=== PATIENT | female | born 1985 | race Hispanic/Latino ===

== ENCOUNTER 2020-05-17 21:55 | Emergency (ER) | payer SELFPAY ==
--- OUTSIDE RECORDS SUMMARY | 2020-05-17 21:57 | XMS REPORT | Continuity of Care Document ---
:[address] [facility] t Address [address] [place] [address] Care Team Providers Name Role Phone Jomar Melton Attending Clinician Problems This patient has no known problems. Allergies, Adverse Reactions, Alerts This patient has no known allergies or adverse reactions. Medications This patient has no known medications. Procedures This patient has no known procedures. Encounters Start End Encounter Admission Attending Care Care Encounter Source Date/Time Date/Time Type Type Clinicians Facility Department ID 2020-03-09 2020-03-09 Office NANCY Adams [id number] 09:04:24 10:05:10 Visit Marco Hadley [employer] [id number] [facility] [id number] MATERNAL [id number] & CHILD [address] [place] [address] Results This patient has no known results.
--- OUTSIDE RECORDS SUMMARY | 2020-05-17 21:57 | XMS REPORT | Summary of Care ---
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 Well woman exam (no gynecological exam); [address] [place] [address] Screen fo r STD (sexually transmitted disease); [address] [place] Need for prophylactic vaccination and in oculation against influenza; [place], [place] [address] Class 2 obesity with body mass index (BM I) of 36.0 to 36.9 in adult, unspecified obesity type, unspecified whether serious comorbidity present; [id number] BMI 36.0-36.9,adult [phone] Allergies No Known Allergiesdocumented as of this encounter (statuses as of 03/09/2020) Medications No known medicationsdocumented as of this encounter (statuses as of 03/09/2020) Active Problems Patient Care Coordination Note GDM with LGA fetus- repeat CS at 38-39 w eeks gestation Problem Noted Date Need for prophylactic vaccination and inoculation agai nst influenza 03/09/2020 Encounter for surveillance of other contraceptive 01/2018 Nexplanon removal 06/10/2014 BMI 36.0-36.9,adult 06/10/2014 Overview: 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 Screen for STD (sexually transmitted disease) 06/10/19 15 Overview: 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 GDM (gestational diabetes mellitus) 09/25/2013 Overview: 2,000 calorie diet 02/08- glyburide 5 mg BID Class 2 obesity with body mass index (BMI) of 36.0 to 36.9 in adult, 07/24/2012 unspecified obesity type, unspecified whether serious comorbidity present documented as of this encounter (statuses as of 03/09/2020) Resolved Problems Problem Noted Date Resolved Date Routine follow-up 05/20/2014 06/10/2014 Anemia of mother in , condition 05/20/19 15 06/10/2014 04/22/2014 05/20/2014 GBS (group b Streptococcus) UTI complicating , 02/1905/20/2014 unspecified trimester Overview: 03/01 GBS (+) Glucose tolerance test abnormal 09/21/2013 09/26/19 14 Overview: 1hr- 186. Needs 3hr---failed UTI (urinary tract infection) 09/21/2013 05/20/2014 Overview: KIMBERLY- 09/2013, 10/2013, 2013- E coli. 12/07/2013- neg KIMEBRLY 03/08 E colio and GBS- place on suppressive therapy High-risk 09/18/2013 05/20/2014 Overview: Dating usg cancelled per scheduling nurse due to Title V. Patient may be given title V ultrasound but it must be before 2nd visit. 2nd visit scheduled for tomorrow so box nailer can not accomodates in short time. 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 Morbid obesity 07/21/2013 09/18/2013 High-risk 07/24/2012 07/21/2013 Gestational diabetes mellitus, class A2 07/24/2012 07/21/2013 Previous delivery, antepartum condition or 07/25/19 13 07/21/2013 complication Hx of preeclampsia, prior , currently 11/201207/21/2013 documented as of this encounter (statuses as of 03/09/2020) Immunizations Name Administration Dates Next Due Influenza Virus Vaccine (3+ yrs) 03/01/2014 Influenza Virus Vaccine Quad .5 mL IM 6+ MO 03/09/2020 Rubella 11/30/2011 TDAP 02/15/2014, 07/16/2012 documented as of this encounter Social History Tobacco Use Types Packs/Day Years Used Date Former Smoker Quit: 09/19/19 12 Smokeless Tobacco: Never Used Alcohol Use Drinks/Week oz/Week Comments Yes social Sex Assigned at Date Recorded Not on file COVID-19 Exposure Response Date Recorded In the last month, have you been in contact with No / Unsure 03/09/2020 9:19 AM CDT someone who was confirmed or suspected to have Coronavirus / COVID-19? documented as of this encounter Last Filed Vital Signs Vital Sign Reading Time Taken Comments Blood Pressure 122/82 03/09/2020 9:19 AM CDT Pulse 67 03/09/2020 9:19 AM CDT Temperature 36.7 C (98.1 F) 03/09/2020 9:19 AM CDT Respiratory Rate 16 03/09/2020 9:19 AM CDT Oxygen Saturation - - Inhaled Oxygen Concentration - - Weight 99.2 kg (218 lb 12.8 oz) 03/09/2020 9:19 AM CDT Height 165.1 cm (5' 5") 03/09/2020 9:19 AM CDT Body Mass Index 36.41 03/09/2020 9:19 AM CDT documented in this encounter Patient Instructions Patient InstructionsSridevi Powers RN - 03/09/2020 9:00 AM CDT Patient Education 5 Steps for Eating Healthier Changing the way you eat can improve your health. It can lower your cholesterol and blood pressure, and help you stay at a healthy weight. Your diet doesnt have to be bland and boring to be healthy.Just watch your calories and follow these steps: Step 1. Eat fewer unhealthy fats Choose more fish and lean meats instead of fatty cuts of meat. Skip butter and lard, and use less margarine. Pass on foods that have palm, coconut, or hydrogenated oils. Eat fewer high-fat dairy foods like cheese, ice cream, and whole milk. Get a heart-healthy cookbook and try some low-fat recipes. Step 2.Go light on salt Keep the saltshaker off the table. Limit high-salt ingredients, such as soy sauce, bouillon, and garlic salt. Instead of adding salt when cooking, season your food with herbs and flavorings. Try lemon, garlic, and onion, or salt-free herb seasonings. Limit convenience foods, such as boxed or canned foods and restaurant food. Read food labels and choose lower-sodium options. Step 3. Limit sugar Pause before you add sugars to pancakes, cereal, coffee, or tea. This includes white and brown table sugar, syrup, honey, and molasses. Cut your usual amount by half. Use non-sugar sweeteners. Stevia, aspartame, and sucralose can satisfy a sweet tooth without adding calories. Swap out sugar-filled soda and other drinks. Buy sugar-free or low-calorie beverages. Remember water is always the best choice. Read labels and choose foods with less added sugar. Keep in mind that dairy foods and foods with fruit will have some natural sugar. Cut the sugar in recipes by 1/3 to 1/2. Boost the flavor with extracts like almond, vanilla, or orange. Or add spices such as cinnamon or nutmeg. Step 4. Eatmore fiber Eat fresh fruits and vegetables every day. Boost your diet with whole grains. Go for oats, whole-grain rice, and bran. Add beans and lentils to your meals. Drink more water to match your fiber increase to help prevent constipation. Step 5. Pay attention to serving sizes Remember that a serving size is a standard measurement. It will let you track the amount of fat, calories, and other nutrients in the food you eat. Read the Nutrition Facts label on packaged foods to learn their serving sizes. Use serving sizes to assess how much food you put on your plate. Pay attention to your portions. How many servings are you eating? Keep in mind that your needs may change if youre more active or less active, or if you have other factors that change your calorie needs. Use your hand to help you measure serving sizes. For example: ? 1 teaspoon: This is about the size of the first joint of your thumb. ? 1 tablespoon: This is about the size of the first 2 joints of your thumb. ? 1 ounce: This is about what you can fit in your cupped hand. ? 2 to 3 ounces: This is about size of the palm of your hand. ? cup: This is also about what you can fit in your cupped hand. ? 1 cup: This is about the size of your fist. [employer] last reviewed this educational content on 11/18/201919997731-2720 [employer]. All rights reserved. This information is not intended as a substitute for professional medical care. Always follow your healthcare professional's instructions. Patient Education Breast Health: Breast Self-Awareness What is breast self-awareness? Breast self-awareness is knowing how your breasts normally look and feel. Your breasts change as yougo through different stages of your life. So its important to learn what is normal for your breasts. Knowing about your breasts helps you spot any changes in them right away. Tell your healthcare provider about any changes. Why is breast self-awareness important? Many experts now say that women should focus on breast self-awareness instead of doing a breast self-examination (BSE). These experts include the [place] [employer] and the [place] [employer]. Some experts even advise not teaching women to do a BSE. Thats because research hasnt shown a clear benefit to doing BSEs. Breast self-awareness is different than a BSE. It isnt about following a certain method and schedule. Its about knowing what's normal for your breasts. That way you can spot even small changes right away. If you see any changes, tell your healthcare provider. Changes to look for Call your healthcare provider if you find any changes in your breasts that worry you. These changes may be: A lump Nipple discharge other than breast milk, especially if it's bloody Swelling A change in size or shape Skin changes, such as redness, thickening, or dimpling of the skin Swollen lymph nodes in the armpit Nipple problems, such as pain or redness If you find a lump Call your provider if you find lumpiness in one breast. Also call if you feel something different inthe tissue or feel a definite lump. Sometimes lumpiness may be due to menstrual changes. But there may be reason for concern. Your provider may want to see you right away if you have: Nipple discharge that is bloody Skin changes on your breast, such as dimpling or puckering Its okay to be upset if you find a lump. Be sure to call your provider right away. Remember that most breast lumps are benign. This means they are not cancer. [employer] last reviewed this educational content on 09/18/201919997074-0323 [employer]. All rights reserved. This information is not intended as a substitute for professional medical care. Always follow your healthcare professional's instructions. Patient Education Clinical Breast Exam Many health organizations recommend a yearly clinical breast exam. This exam may be done by a fence rider, family healthcare provider, nurse practitioner, nurse edger automatic, or specially trained nurse. Yearly breast exams help tomake surethat breast conditions are found early. Your healthcare providers role A healthcare professional knows the tests and follow-up care needed if a problem is found. Your clinical exam is also a great time to ask questions about breast self-exams. You can find out if yourechecking your breasts in the best way. Or you may want to ask how , breast implants, or breast reduction surgery affect the way you should check your breasts. Diagnostic tests If a clinical exam reveals a breast change, you may have other tests to find out more. These tests may include: Mammography. A low-dose X-ray of your breast tissue. Ultrasound. An imaging test that uses sound waves to create images of your breast. Biopsy. A small amount of breast tissue is removed by needle or by a cut (incision). The tissue is then checked under a microscope. Guidelines for having clinical breast exams The [place] [employer] recommends that starting at age 29, you should have a clinical breast exam every 1 to 3 years. After age 40, have a clinical breast exam each year. If youre at higher risk for breast cancer, you may need exams more often. Risk factors for breast cancer may include: Being over 50 or postmenopausal Having a family history of breast cancer Having the BRCA1 or BRCA2 gene mutation or certain other gene mutations Having more menstrual periods due to starting menstruation early(before age 12) or having a late menopause (after age 55) Having no pregnancies Having a first after age 30 Being obese Having a history of radiation treatment to your chest area Exposure to CRISTAL during your mother's Not being active Drinking too much alcohol Having dense breast tissue Taking hormone therapy after menopause Other health organizations have different recommendations. Talk with your healthcare provider about what is best for you. [employer] renetta reviewed this educational content on 08/19/201919992639-2242 [employer]. All rights reserved. This information is not intended as a substitute for professional medical care. Always follow your healthcare professional's instructions. Patient Education Control Methods control methods are used to help prevent .There are many different methods to choose from. Talk with your healthcare provider about which method is right for you.Be sure to ask your provider how well each one works. Also ask about the benefits, risks, and side effects of each method. Hormones Some control methods work by releasing hormones such as progestin and estrogen. These methods include hormone implants, hormone shots, the vaginal ring, the patch,and control pills. They all work by stopping the release of the egg from the ovary (ovulation). All of these methods work well and can be stopped at any time. The implant is a small device that needs to be placed in the upper arm by a trained healthcare provider. It works for up to3 years. Hormone injections must be repeated every 3 months. The vaginal ring must be replaced monthly. It can be removed during the fourth week of each cycle. The patch must be replaced weekly. It's not worn during the fourth week of each cycle. control pills must be taken every day. Intrauterine device (IUD) An IUD is a small, T-shaped device. It must be placed in the uterus by a trained healthcare provider.There are different types of IUDs available. They work by causing changes in the uterus that make it harder for sperm to reach the egg. Depending on the type of IUD you have, it may work for several years or longer. The IUD is a reversible control method. This means it can be removed at any time. Condom A condom is a sheath that forms a thin barrier between the penis and the vagina.It helps prevent by keeping sperm from entering the vagina. When latex condoms are used, they have the added benefit of protecting against most STIs (sexually transmitted infections).Condoms are used each time there is sexual intercourse and should be discarded after each use. Ask your healthcare provider about the different types of condoms available. These include both the male condom and female condom. Spermicide Spermicides come as foams, jellies, creams, suppositories, andtablets.They help prevent by killing sperm. When used alone they are not that reliable. They work best when combined with other control methods such as diaphragms and cervical caps. Sponge, diaphragm, and cervical cap All of these methods help prevent by covering the opening of the uterus (cervix). This prevents sperm from passing through. The sponge contains spermicide. It can be bought over the counter. The sponge must be left in place for at least 6 hours after the last time you have sex.However, it should not stay in place for morethan 24 hours. Discard after use. Thediaphragmand cervical cap must be fitted and prescribed by your healthcare provider. Both areused with spermicide.The diaphragm must be left in place for at least 6 hours after sex. However, it should not stay in place for more than 24 hours.It can be washed and reused. The cervical cap must be left in place for at least 6 hours after sex. However, it should not stay in place for more than 48 hours. It can be washed and reused. Withdrawal method This is when the man pulls his penis out of the vagina just before ejaculation (coming). This lowers the amount of sperm entering the vagina. Be aware that fluids released just before ejaculationoften still contain some sperm, so this method is not as reliable as certain other methods. Rhythm method This method is also call natural family planning or fertility awareness. It requires that you know when in your menstrual cycle you are likely to become . Then you not have sex during those days. This requires careful planning and good discipline. Your healthcare provider can explain more about how this works. Tubal ligation and vasectomy These are surgical methods to prevent . Tubal ligation is an option for women. The fallopian tubes are blocked or cut (ligated). This keeps the egg from passing into the uterus or sperm from reaching the egg. Vasectomy is an option for men. The tubes that normally carry sperm to the penis areeither closed or blocked. Both tubal ligation and vasectomy are permanent control methods. This means reversal is either not possible or unlikely to work.They are good choices for women and menwho know that they don't want to have children in the future. [employer] last reviewed this educational content on 11/18/2019 [employer]. All rights reserved. This information is not intended as a substitute for professional medical care. Always follow your healthcare professional's instructions. Patient Education Understanding HPV (Human Papillomavirus) HPV (human papillomavirus) is a virus that causes warts. It can be hard to detect, so many people never even know they have it. Some types (strains) of HPV may cause warts on the hands, legs, or other parts of the body. These can spread from person to person. Other strains of HPV cause wartsin the genital area. A few of these strains can cause certain cancers: Cancers of the cervix, vagina, and vulva in women Cancers of the penis in men Cancers of the anus and back of the throat, including the base of the tongue and tonsils in both women and men . Treating genital forms of HPV now can help prevent serious health problems in the future. How was I infected? HPV is passed from person to person through contact with infected skin. Everyone with HPV has a different experience. Some people notice genital warts (condyloma) within a few months of exposure. In other people, warts take years to appear or may never appear. This makes it almost impossible to know when or by whom you were infected. How warts form HPV lives inside skin and mucous membrane (including in the mouth and vagina). The virus can make skin cells reproduce more often than they should. These extra skin cells build up into warts. 1. HPV invades the skin. 2. DNA from the virus enters skin cells. 3. HPV causes infected skin cells to multiply and form warts. 4. The virus sheds, allowing it to be passed to others. [employer] last reviewed this educational content on 10/18/2018 [employer]. [address] [place] [address]. All rights reserved. This information is not intended as a substitute for professional medical care. Always follow your healthcare professional's instructions. Patient Education Prevention Guidelines,Women Ages 18 to 39 Screening tests and vaccines are an important part of managing your health. A screening test is doneto find possible disorders or diseases in people who don't have any symptoms. The goal is to find a disease early so lifestyle changes can be made and you can be watched more closely to reduce the riskof disease, or to detect it early enough to treat it most effectively. Screening tests are not considered diagnostic, but are used to determine if more testing is needed. Health counseling is essential, too. Below are guidelines for these, for women ages 18 to 39. Talk with your healthcare provider tomake sure youre up-to-date on what you need. Screening Who needs it How often Alcohol misuse All women in this age group At routine exams Blood pressure All women in this age group Yearly checkup if your blood pressure is normal Normal blood pressure is less than 120/80 mm Hg If your blood pressure reading is higher than normal, follow the advice of your healthcare provider Breast cancer All women in this age group should talk with their healthcare providers about the needfor clinical breast exams (CBE)1 Clinical breast exam every 3 years1 Cervical cancer Women ages 21 and older Women between ages 21 and 29 should have a Pap test every 3years; women between ages 30 and 65 are advised to have a Pap test plus an HPV test every 5 years Chlamydia Sexually active women ages 24 and younger, and women at increased risk for infection Every 3 years if you're at risk or have symptoms Depression All women in this age group At routine exams Diabetes mellitus, type 2 Adults with no symptoms who are overweight or obese and have 1 or more other risk factors for diabetes At least every 3 years. Also, testing for diabetes during after the 24th week. Gonorrhea Sexually active women at increased risk for infection At routine exams Hepatitis C Anyone at increased risk At routine exams HIV All women At routine exams3 Obesity All women in this age group At routine exams Syphilis Women at increased risk for infection should talk with their healthcare provider At routine exams Tuberculosis Women at increased risk for infection should talk with their healthcare provider Ask your healthcare provider Vision All women in this age group At least 1 complete exam in your 20s, and 2 in your 30s Vaccine Who needs it How often Chickenpox (varicella) All women in this age group who have no record of this infection or vaccine2 doses; the second dose should be given 4 to 8 weeks after the first dose Hepatitis A Women at increased risk for infection should talk with their healthcare provider 2 doses given at least 6 months apart Hepatitis B Women at increased risk for infection should talk with their healthcare provider 3 doses over 6 months; second dose should be given 1 month after the first dose; the third dose should be given at least 2 months after the second dose and at least 4 months after the first dose Haemophilus influenzae Type B (HIB) Women at increased risk for infection should talk with their healthcare provider 1 to 3 doses Human papillomavirus (HPV) All women in this age group up to age 26 3 doses; the second dose should be given 1 to 2 months after the first dose and the third dose given 6 months after the first dose Influenza (flu) All women in this age group Once a year Measles, mumps, rubella (MMR) All women in this age group who have no record of these infections orvaccines 1 or 2 doses Meningococcal Women at increased risk for infection should talk with their healthcare provider 1 ormore doses Pneumococcal conjugate vaccine (PCV13)and pneumococcal polysaccharidevaccine(PPSV23) Women atincreased risk for infection should talk with their healthcare provider PCV13: 1 dose ages 19 to 65(protects against 13 types of pneumococcal bacteria) PPSV23: 1 to2 doses through age 64, or 1 dose at 65 or older (protects against 23 types of pneumococcal bacteria) Tetanus/diphtheria/pertussis (Td/Tdap) booster All women in this age group Td every 10 years, or a one-time dose of Tdap instead of a Td booster after age 18, then Td every 10 years Counseling Who needs it How often BRCA gene mutation testing for breast and ovarian cancer susceptibility Women with increased risk for having gene mutation When your risk is known Breast cancer and chemoprevention Women at high risk for breast cancer When your risk is known Diet and exercise Women who are overweight or obese When diagnosed, and then at routine exams Domestic violence Women at the age in which they are able to have children At routine exams Sexually transmitted infection prevention Women who are sexually active At routine exams Skin cancer Prevention of skin cancer in fair-skinned adults At routine exams Use of tobacco and the health effects it can cause All women in this age group Every visit 1 According to the ACS, women ages 20 to 39 years should have a clinical breast exam (CBE) as part of their routine health exam every 3 years. Breast self-exams are an option for women starting in their 20s.But the U.S. Preventive Services Task Force (USPSTF) does not recommend CBE. 2 Those who are 18 years old and not up-to-date on their childhood vaccines should get all appropriate catch-up vaccines recommended by the CDC. 3 The USPSTF recommends that all people ages 15 to 65 years be screened for HIV and those younger orolder people at increased risk. The CDC recommends that everyone between the ages of 13 and 64 get tested for HIV at least once as part of routine health care. [employer] last reviewed this educational content on 02/17/201719995185-0190 [employer]. All rights reserved. This information is not intended as a substitute for professional medical care. Always follow your healthcare professional's instructions. Patient Education What Are Sexually Transmitted Infections (STIs)? A sexually transmitted infection (STI) is an infection that is spread during sex. An STI can also becalled STD for sexually transmitted disease. You can become infected with an STI if you have sex with someone who has an STI. Any sex that involves the penis, vagina, anus, or mouth can spread these infections. Some STIs also spread through body fluids such as semen, vaginal fluid, or blood. Others spread through contact with infected skin. The most common STIs are chlamydia, genital warts , genital herpes, syphilis, HIV, gonorrhea, and trichomoniasis. Who is at risk? It doesnt matter if youre straight or tyler, male or female, young or old. Any person who has sex can get an STI. Your risk increases if: You have more than one partner. The more partners you have, the greater your risk. Your partner has other partners. If your partner is exposed to an STI, you could be, too. You or your partner have had sex with other people in the past. Either of you might be carrying an STI from an earlier partner. You have an STI. The STI may cause sores or other health problems that increase your risk for newinfections. Your risk will stay high unless you are treated for your current STI and change the behaviors that put you at risk. Prevent future problems Left untreated, certain STIs can lead to cancer or, rarely, . Some can harm unborn babies whosemothers are infected. Others can cause you to not be able to have children (sterility) or can affectchanges in behavior or your ability to think. You can prevent these problems with safer sex, regularcheckups, and early treatment. Always use a latex condom when you have sex. Get tested if youre at risk. And get treated early if you have an STI. Using a latex condom every time you have sex can reduce your risk of STIs. Getting checked The only sure way to know if you have an STI is to get checked by a healthcare provider. If you notice a change in how your body looks or feels, have it checked out. But keep in mind, STIs dont always show symptoms. So if youre at risk for STIs, get checked regularly. If you find you have an STI, have your partner get treatment. If not, his or her health is at risk. And left untreated, your partner could pass the STI back to you, or on to others. Common symptoms Be alert to any changes in your body and your partners body. Symptoms may appear in or near the vagina, penis, rectum, mouth, or throat. They may include: Unusual discharge Lumps, bumps, or rashes Sores that may be painful, itchy, or painless Itchy skin Burning with urination Pain in the pelvis, belly (abdomen), or rectum Bleeding from the rectum Even if you dont have symptoms You may have an STI even if you dont have symptoms. If you think you are at risk, get checked. Goto a clinic or to your healthcare provider. If your partner has an STI, you need to be tested even if you feel fine. Vaccines to prevent disease Vaccines are available to prevent hepatitis A and hepatitis B. These are 2 kinds of STIs. There is also a vaccine to prevent human papillomavirus (HPV). This is a virus that can be passed from person to person through sexual contact. Ask your healthcare provider whether any of these vaccines is right for you. [employer] last reviewed this educational content on 04/19/201819993585-3893 [employer]. All rights reserved. This information is not intended as a substitute for professional medical care. Always follow your healthcare professional's instructions. Patient Education What Are Sexually Transmitted Infections (STIs)? A sexually transmitted infection (STI) is an infection that is spread during sex. An STI can also becalled STD for sexually transmitted disease. You can become infected with an STI if you have sex with someone who has an STI. Any sex that involves the penis, vagina, anus, or mouth can spread these infections. Some STIs also spread through body fluids such as semen, vaginal fluid, or blood. Others spread through contact with infected skin. The most common STIs are chlamydia, genital warts , genital herpes, syphilis, HIV, gonorrhea, and trichomoniasis. Who is at risk? It doesnt matter if youre straight or tyler, male or female, young or old. Any person who has sex can get an STI. Your risk increases if: You have more than one partner. The more partners you have, the greater your risk. Your partner has other partners. If your partner is exposed to an STI, you could be, too. You or your partner have had sex with other people in the past. Either of you might be carrying an STI from an earlier partner. You have an STI. The STI may cause sores or other health problems that increase your risk for newinfections. Your risk will stay high unless you are treated for your current STI and change the behaviors that put you at risk. Prevent future problems Left untreated, certain STIs can lead to cancer or, rarely, . Some can harm unborn babies whosemothers are infected. Others can cause you to not be able to have children (sterility) or can affectchanges in behavior or your ability to think. You can prevent these problems with safer sex, regularcheckups, and early treatment. Always use a latex condom when you have sex. Get tested if youre at risk. And get treated early if you have an STI. Using a latex condom every time you have sex can reduce your risk of STIs. Getting checked The only sure way to know if you have an STI is to get checked by a healthcare provider. If you notice a change in how your body looks or feels, have it checked out. But keep in mind, STIs dont always show symptoms. So if youre at risk for STIs, get checked regularly. If you find you have an STI, have your partner get treatment. If not, his or her health is at risk. And left untreated, your partner could pass the STI back to you, or on to others. Common symptoms Be alert to any changes in your body and your partners body. Symptoms may appear in or near the vagina, penis, rectum, mouth, or throat. They may include: Unusual discharge Lumps, bumps, or rashes Sores that may be painful, itchy, or painless Itchy skin Burning with urination Pain in the pelvis, belly (abdomen), or rectum Bleeding from the rectum Even if you dont have symptoms You may have an STI even if you dont have symptoms. If you think you are at risk, get checked. Goto a clinic or to your healthcare provider. If your partner has an STI, you need to be tested even if you feel fine. Vaccines to prevent disease Vaccines are available to prevent hepatitis A and hepatitis B. These are 2 kinds of STIs. There is also a vaccine to prevent human papillomavirus (HPV). This is a virus that can be passed from person to person through sexual contact. Ask your healthcare provider whether any of these vaccines is right for you. [employer] last reviewed this educational content on 04/19/201819994387-1420 [employer]. All rights reserved. This information is not intended as a substitute for professional medical care. Always follow your healthcare professional's instructions. Patient Education Understanding HIV and AIDS It's important to know how HIV can get into your body and what happens once its there. Then youll be better prepared to protect yourself or others against this virus. A person with HIV can look and feel perfectly healthy. But that person can give HIV to others as soon as he or she is infected with the virus. Having unsafe or unprotected sex or sharing needles puts you at risk for HIV. Talk with your healthcare provider about ways to protect yourself or a loved one from getting HIV. How HIV infection progresses After HIV enters the body, it attacks the immune system in the stages below. A person with HIV can infect others once the virus gets into the blood. HIV with no symptoms. A person with HIV may have no symptoms for years. The only sign of infection may be a positive blood test for HIV 2 weeks to 3 months or later after HIV enters the body. HIV with symptoms. Some people develop an illness similar to mono (mononucleosis) 2 to 4 weeks after the virus enters the body. This is called acute retroviral syndrome. Symptoms may include swollen lymph glands, chills, fever, night sweats, weakness, weight loss, skin rashes, mouth ulcers, or sore t hroat. Symptoms may be mild or the person can feel quite sick. Even without treatment the symptoms almost always go away in a few days or up to 2 to 3 weeks. Then the person has no symptoms, often for years. But over time the immune system starts to get weaker and symptoms start appearing. People at this stage may have a yeast infection in the mouth (oral thrush), shingles, skin problems, pneumonia, diarrhea that keeps coming back, or weight loss. AIDS. AIDS is the most advanced stage of HIV infection, when the immune system is severely weakened.Certain rare diseases and cancers that normally would not occur, now can occur because the body can no longer fight them well enough. It is often these diseases that cause in people with AIDS. HIV may also directly attack the brain and nervous system. This causes seizures and loss of memory and body movement. It also affects many other parts of the body. This leads to problems such as anemia, low white blood cell count, diarrhea, belly pain, skin problems, and many others. How HIV enters the body HIV is carried in semen, vaginal fluid, blood, and breastmilk. During sex, HIV can enter the body. It gets in through the fragile tissue and linings, sores, or cuts in or around the vagina, penis, anus, and mouth. During drug use, tattooing, or body piercing, the virus can enter the blood through an infected needle. A mother who has HIV can infect her child during , childbirth, and . [employer] last reviewed this educational content on 10/18/201819992750-6883 [employer]. [address] [place] [address]. All rights reserved. This information is not intended as a substitute for professional medical care. Always follow your healthcare professional's instructions. 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 Patient denies any abdominal/pelvic pain. Patient denies any other concerns. Patient reports LMP was 02/03/2020. Patient reports lastsexual intercourse was on 03/06/2020 and desires to use condoms for BCM. Patient desires need for STD/STI testing. Patient denies current or past physical, sexual or emotional abuse. Histories OB History Para Term AB Living 4 3 3 1 3 SAB TAB Ectopic Multiple Live Births 1 3 # Outcome Date GA Lbr Sukhdeep/2nd Weight Sex Delivery Anes PTL Lv 4 Term 04/22/14 37w0d 8 lb 14.2 oz (4.03 kg) F SEC SPINAL FER Comments: Maternal Age: 28; :4; Parity:3 Mother's Blood Type:O pos Baby's Blood Type:A pos, ALVARO positive Maternal Serological Test:normal Maternal Group B Strep Screening:positive; Adequate Treatment: not indicated due to ROM at 3 TAB 12/2012 2 Term 07/24/12 39w0d 6 lb 7 oz (2.92 kg) F CS-LTranv EPIDURAL N FER Comments: GDM- controlled with pills 1 Term 08/23/06 41w0d 12:00 9 lb 5.3 oz (4.232 kg) M CS-LTranv EPIDURAL N FER Comments: 9lb infant, PIH Past Medical History: Diagnosis Date Anemia of mother in , condition 05/20/2014 unsure, not on medication Diabetes mellitus during in 2012 GDM 09/18/2013 GDM (gestational diabetes mellitus) 09/25/2013 Gestational diabetes mellitus, class A2 07/24/2012 Hypertension During 1st Obesity PID (pelvic inflammatory disease) at age 15 Family History Problem Relation Age of Onset Asthma Sister Diabetes Mother Hypertension Mother Hypertension Father No Significant Medical Problems Brother Arthritis NoFHx defects NoFHx Breast Cancer NoFHx Colon Cancer NoFHx Ovarian Cancer NoFHx Uterine Cancer NoFHx Cancer NoFHx Genetic NoFHx Depression NoFHx Mental retardation NoFHx Neurological NoFHx Psychiatry NoFHx Other - see comments NoFHx Osteoporosis NoFHx Heart NoFHx High cholesterol NoFHx Family Status Relation Name Status Sis Alive Mo Alive Fa Alive Bro Alive NoFHx (Not Specified) Past Surgical History: Procedure Laterality Date SECTION 2006 SECTION 07/24/2012 Surgeon: Karen Granados MD; Location: LABOR AND DELIVERY - [facility] ANNEX SECTION 07/25/2012 SECTION N/A 04/22/2014 Surgeon: Dilip Julio MD; Location: [facility] Social History Socioeconomic History Marital status: Single Spouse name: Not on file Number of children: Not on file Years of education: Not on file Highest education level: Not on file Occupational History Not on file Social Needs Financial resource strain: Not on file Food insecurity Worry: Not on file Inability: Not on file Transportation needs Medical: Not on file Non-medical: Not on file Tobacco Use Smoking status: Former Smoker Quit date: 09/19/2011 Years since quittin.4 Smokeless tobacco: Never Used Substance and Sexual Activity Alcohol use: Yes Comment: social Drug use: No Sexual activity: Yes Partners: Male control/protection: None Comment: last sexual intercourse 11/2017 Lifestyle Physical activity Days per week: Not on file Minutes per session: Not on file Stress: Not on file Relationships Social connections Talks on phone: Not on file Gets together: Not on file Attends quaker service: Not on file Active member of club or organization: Not on file Attends meetings of clubs or organizations: Not on file Relationship status: Not on file Intimate partner violence Fear of current or ex partner: Not on file Emotionally abused: Not on file Physically abused: Not on file Forced sexual activity: Not on file Other Topics Concern Not on file Social History Narrative No domestic violence or abuse Pt states she has no quaker preference. Social History Substance and Sexual Activity Sexual Activity Yes Partners: Male control/protection: None Comment: last sexual intercourse 11/2017 Labs Labs are pending. Radiology No new radiology. Allergies [facility] has No Known Allergies. Medications [facility] currently has no medications in their medication list. Review of Systems Constitutional: Negative for activity change, appetite change, fatigue, unexpected weight change, weight gain and weight loss. HENT: Negative for sore throat. Eyes: Negative for visual disturbance. Respiratory: Negative for cough and shortness of breath. Breasts: Negative for discharge, mass, pain and unequal size. Cardiovascular: Negative for chest pain, palpitations and leg swelling. Gastrointestinal: Negative. Negative for abdominal pain, anal bleeding, blood in stool, constipation, diarrhea, nausea, rectal pain and vomiting. Genitourinary: Negative for bladder incontinence, dysuria, urgency, flank pain, vaginal bleeding, vaginal discharge, genital sores, vaginal pain and pelvic pain. Skin: Negative for color change and rash. Neurological: Negative. Negative for dizziness, syncope and headaches. Psychiatric/Behavioral: Negative for confusion, self-injury and sleep disturbance. The patient is not nervous/anxious. Hematological: Negative for cold intolerance and heat intolerance. Endocrine: Negative for hair loss, cold intolerance, heat intolerance, weight gain and weight loss. BP 122/82 (BP Location: Right arm, Patient Position: Sitting, BP CUFF SIZE: Adult Medium) | Pulse 67 | Temp 36.7 C (98.1 F) (Oral) | Resp 16 | Ht 5' 5" (1.651 m) | Wt 218 lb 12.8 oz (99.2 kg)| LMP 02/03/2020 | BMI 36.41 kg/m Pregravid BMI: Could not be calculated Physical Exam Vitals reviewed. Constitutional: She is oriented to person, place, and time. She appears well- developed and well-nourished. Her body habitus is normal. Cardiovascular: Regular rate and rhythm. No peripheral edema present. Pulmonary/Chest: Normal inspiratory effort. Neuro/Psychiatric: Inappropriate mood and affect. She is oriented to person, place, and time. Skin: Skin normal. No lesion, no rash and no ulceration present. Assessment/Plan Rubella:N/A, Rubella vaccine 2011 VZV:N/A BMI:36.41 Td:2013 Pap Smear:2018, WNL Gardasil:N/A Mammogram:N/A Guaiac:N/A Colonoscopy:N/A Encounter for surveillance of other contraceptive (primary encounter diagnosis) Comment: patient desires condoms Plan: patient will call if another BCM is needed Well woman exam (no gynecological exam) Comment: Routine WWE Plan: Denies zika virus risk, signs and symptoms such as fever,rash,joint pain, conjunctivitis (red eyes), muscle pain, headaches; outside [place] travel to areas affected by zika, and FOB exposure to zika.Educated on use of mosquito repellent. Covid x12 screening done, screening results are negative. Screen for STD (sexually transmitted disease) Comment: patient desires Plan: GC & CHLAMYDIA AMPLIFIED ASSAY, GALV ONLY - SYPHILIS IGG/IGM, HIV 1/2 AG-AB WITH REFLEX Need for prophylactic vaccination and inoculation against influenza Comment: patient desires vaccine Plan: FLU VACC([id number]), 6+ MONTHS, IM, QUAD (FLUZONE/FLULAVAL/FLUARIX) Class 2 obesity with body mass index (BMI) of 36.0 to 36.9 in adult, unspecified obesity type, unspecified whether serious comorbidity present BMI 36.0-36.9,adult Comment: BMI: 36.41 Plan: Patient encouraged to limit weight gain and advised to eat healthy diet, fruits, vegetables, increased fiber and water intake and protein low in fat. Encouraged exercise for 30 min everyday; begin regimen with caution to prevent injury. Encouraged to decrease BMI to <25. 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 Return to clinic in 1 year for WWE. Discussed treatment options. Medications as ordered. Reviewed patient instructions and provided printed copy. This visit did not involve counseling and coordination that comprised more than 50% of the visit time. IRA Trujillo 03/09/2020 10:04 AM Sridevi Powers RN - 03/09/2020 9:00 AM CDT34 year old presented to the clinic for WWE. 1) Previous BCM: none 2) Desired BCM: none 3) LMP: 02/03/2020 only for one day 4) Last [place]: 03/06/2020 5) Last Pap: 02/25/2018 Results: Neg HPV: neg 6) Tdap in last 10 years? yes 7) Would like STD testing? Yes 8) Patient denies history of physical, emotional, or sexual abuse. Patient states she currently feels safe at home. 9) C/O: none 10) Would like flu vaccine? Yes documented in this encounter Plan of Treatment Date Type Specialty Care Team Description 03/09/2021 [facility] Visit [facility]21 Office Visit [facility] Marco Adams FNP [address] [place], [place] [address] [phone] Name Type Priority Associated Diagnoses Date/Ti me GC & CHLAMYDIA LAB Routine Screen for STD (sexually 1 10:05 AM CDT AMPLIFIED ASSAY transmitted disease) GALV ONLY - SYPHILIS LAB Routine Screen for STD (sexu ally 03/09/2020 10:00 AM CDT IGG/IGM transmitted disease) HIV 1/2 AG-AB WITH LAB Routine Screen for STD (sexual ly 03/09/2020 10:00 AM CDT REFLEX transmitted disease) Health Maintenance Due Date Last Done Comments Depression Screening 01/07/2021 01/08/2020 VARICELLA VACCINES (1 of 2 01/07/2021 Postp oned from - 2-dose childhood series) 07/03 (Alternative Guidelines) PAP SMEAR 02/25/2021 02/25/2018, 07/21/2013, 02/21/2010, Additional history exists DTaP,Tdap,and Td Vaccines 02/16/2024 02/15/2014, 07/16/2012 (3 - Td) INFLUENZA VACCINE Completed 03/09/2020, 03/01/2014 PNEUMOCOCCAL 0-64 YEARS Aged Out No longe r eligible COMBINED SERIES based on patient 's age to complete this topic documented as of this encounter Procedures Procedure Name Priority Date/Time Associated Diagnosis Comme nts FLU VACC ([id number]), Routine 03/09/2020 9:40 AM Need for pro phylactic 6+ MONTHS, IM, QUAD CDT vaccination and inoculation against influenza documented in this encounter Results Not on filedocumented in this encounter Visit Diagnoses Diagnosis Encounter for surveillance of other cont raceptive - Primary Well woman exam (no gynecological exam) Routine general medical examination at a health care facility Screen for STD (sexually transmitted dis ease) Screening examination for venereal disea se Need for prophylactic vaccination and in oculation against influenza Class 2 obesity with body mass index (BM I) of 36.0 to 36.9 in adult, unspecified obesity type, unspecified whether seriou s comorbidity present BMI 36.0-36.9,adult Body Mass Index 36.0-36.9, adult documented in this encounter Insurance Payer Benefit Plan / Subscriber ID Effective Dates Phone Addre ss Type Group [facility] FAMILY PLANNING [id number] 2020-[place] [employer] PLANNING JIMBO JIMBO 0-100% ent [id number] [place] [address] documented as of this encounter Advance Directives Type Date Recorded 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
--- OUTSIDE RECORDS SUMMARY | 2020-05-17 21:57 | XMS REPORT | Summary of Care ---
:1985 Author Organization [facility] Address [address] [place] [address] Care Team Providers Name Role Phone Doctor Unassigned, Name Medicaid Hmo Unavailable Selma Berg [facility] Primary Care Provider Encounter Details Date Type Department Care Team Description 03/09/2020 Letter (Out) [facility] RMCHNina- Morgan Adams nda R, SURGERY AID [place] [address] [facility] [address] [place] [address] [place] [address] [phone] Allergies No Known Allergiesdocumented as of this [...] BMI 36.0-36.9,adult 06/10/2014 Overview: ICD10 Diagnosis Term Tray Delivery Aide Utility Screen for STD (sexually transmitted disease) 06/10/19 15 Overview: ICD10 Diagnosis Term Tray Delivery Aide Utility GDM (gestational diabetes mellitus) 09/25/2013 Overview: [...] 09/2013, 10/2013, 2013- E coli. 12/07/2013- neg KIMBERLY 03/08 E colio and GBS- place on suppressive therapy High-risk 09/18/2013 05/20/2014 Overview: Dating usg cancelled per scheduling nurse due to Title V. Patient may be given title V ultrasound but it must be before 2nd visit. 2nd visit scheduled for tomorrow so river pilot can not accomodates in short time. - Will need medicaid for dating usg ICD10 Diagnosis Term Tray Delivery Aide Utility H/O: 09/18/2013 05/20/2014 Overview: Ms Leon- 27 yo with history of prev CS x2 2006 and 2012- uncomplicated Repeat Lower uterine transverse section with no extension. Prior complicated by PIH, antepartum-1st 09/18/2013 05/20/2014 Overview: 1st only GDM 09/18/2013 09/25/2013 UTI (urinary tract infection) 07/24/2013 09/18/2013 Overview: Pt is breast-feeding Encounter for routine gynecological examination 07/21/2013 09/18/2013 Overview: ICD10 Diagnosis Term Tray Delivery Aide Utility Pain pelvic 07/21/2013 09/18/2013 Febrile 07/21/2013 09/18/2013 Tachycardia 07/21/2013 09/18/2013 Overview: ICD10 Diagnosis Term Tray Delivery Aide Utility Morbid obesity 07/21/2013 09/18/2013 High-risk 07/24/2012 [...] of this encounter Last Filed Vital Signs Not on filedocumented in this encounter Plan of Treatment Date Type Specialty Care Team Description 03/09/2021 Office Visit [facility] , 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
--- OUTSIDE RECORDS SUMMARY | 2020-05-17 21:58 | XMS REPORT | Summary of Care ---
:1985 Author Organization [facility] Address [address] [address] Care Team Providers Name Role Phone Doctor Unassigned, Name Medicaid Hmo Unavailable Selma Berg [facility] Primary Care Provider Reason for Visit Reason Comments Well Woman Exam Encounter Details Date Type Department Care Team Description 03/09/2020 Office Visit [facility] RMNina- Marco Adams nter for surveillance of other contraceptive (Primary Dx); Vineet R, GEOGRAPHIC INFORMATION SYSTEM ANALYST Well woman exam (no gynecological exam); [address] Screen fo r STD (sexually transmitted disease); [address] Need for prophylactic vaccination and in oculation against influenza; [place], [place] [address] Class 2 obesity with body mass index (BM I) of 36.0 to 36.9 in adult, unspecified obesity type, unspecified whether serious comorbidity present; [address] BMI 36.0-36.9,adult [phone] Allergies No Known Allergiesdocumented as of this [...] BMI 36.0-36.9,adult 06/10/2014 Overview: ICD10 Diagnosis Term Riveter Pneumatic Utility Screen for STD (sexually transmitted disease) 06/10/19 15 Overview: ICD10 Diagnosis Term Riveter Pneumatic Utility GDM (gestational diabetes mellitus) 09/25/2013 Overview: [...] visit. 2nd visit scheduled for tomorrow so surgery scheduler can not accomodates in short time. - Will need medicaid for dating usg ICD10 Diagnosis Term Riveter Pneumatic Utility H/O: 09/18/2013 05/20/2014 Overview: Ms Leon- 27 yo with history of prev CS x2 2006 and 2012- uncomplicated Repeat Lower uterine transverse section with no extension. Prior complicated by PIH, antepartum-1st 09/18/2013 05/20/2014 Overview: 1st only GDM 09/18/2013 09/25/2013 UTI (urinary tract infection) 07/24/2013 09/18/2013 Overview: Pt is breast-feeding Encounter for routine gynecological examination 07/21/2013 09/18/2013 Overview: ICD10 Diagnosis Term Riveter Pneumatic Utility Pain pelvic 07/21/2013 09/18/2013 Febrile 07/21/2013 09/18/2013 Tachycardia 07/21/2013 09/18/2013 Overview: ICD10 Diagnosis Term Riveter Pneumatic Utility Morbid obesity 07/21/2013 09/18/2013 High-risk 07/24/2012 [...] is about the size of your fist. [employer] last reviewed this educational content on 11/18/201919993528-2938 [employer]. All rights reserved. This information is not [...] breast self-examination (BSE). These experts include the [place] [employer] and the [place] [employer] of Obstetricians and Gynecologists. Some experts [...] benign. This means they are not cancer. [employer] last reviewed this educational content on 09/18/201919999175-8381 [employer]. All rights reserved. This information is not intended as a substitute for professional medical care. Always follow your healthcare professional's instructions. Patient Education Clinical Breast Exam Many health organizations recommend a yearly clinical breast exam. This exam may be done by a wash crew person, family healthcare provider, nurse practitioner, nurse extrusion former, or specially trained nurse. Yearly breast exams [...] Guidelines for having clinical breast exams The [place] [employer] Obst[employer]ians and Gynecologists recommends that [...] provider about what is best for you. [employer] renetta reviewed this educational content on 08/19/201919999527-3263 [employer]. All rights reserved. This information is not [...] want to have children in the future. [employer] last reviewed this educational content on 11/18/2019 [employer]. All rights reserved. This information is not [...] allowing it to be passed to others. [employer] last reviewed this educational content on 10/18/2018 [employer]. [address] [place] [address]. All rights reserved. This information is not [...] once as part of routine health care. [employer] last reviewed this educational content on 02/17/201719993473-0578 [employer]. All rights reserved. This information is not [...] of these vaccines is right for you. [employer] last reviewed this educational content on 04/19/201819995303-4534 [employer]. All rights reserved. This information is not [...] of these vaccines is right for you. [employer] last reviewed this educational content on 04/19/201819990863-9737 [employer]. All rights reserved. This information is not [...] her child during , childbirth, and . [employer] last reviewed this educational content on 10/18/201819996961-4573 [employer]. [address] [place] [address]. All rights reserved. This information is not [...] Dilip Julio MD; Location: [facility]ERY [facility] Social History Socioeconomic History Marital status: Single [...] file Gets together: Not on file Attends episcopal service: Not on file Active member of [...] or abuse Pt states she has no episcopal preference. 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 Return to clinic in 1 year [...] 02/03/2020 only for one day 4) Last [place]: 03/06/2020 5) Last Pap: 02/25/2018 Results: Neg [...] Description 03/09/2021 [facility]/09/2021 Office Visit [facility] Marco Adams FNP [address] [place], [place] [address] [phone] Name Type Priority Associated Diagnoses Date/Ti me [...] Date/Time Associated Diagnosis Comme nts FLU VACC ([id number]), Routine 03/09/2020 9:40 AM Need for pro [...] Effective Dates Phone Addre ss Type Group [facility] FAMILY FAMILY PLANNING [id number] 2020-Pres [employer] PLANNING JIMBO JIMBO 0-100% ent [id number] [place] [address] documented as of this encounter Advance Directives Type Date Recorded 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
--- OUTSIDE RECORDS SUMMARY | 2020-05-17 21:58 | XMS REPORT | Summary of Care ---
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 Well woman exam (no gynecological exam); [address] Screen fo r STD (sexually transmitted disease); [address] [place] Need for prophylactic vaccination and in oculation against influenza; [place], [place] [address] Class 2 obesity with body mass index (BM I) of 36.0 to 36.9 in adult, unspecified obesity type, unspecified whether serious comorbidity present; [address] BMI 36.0-36.9,adult [phone] Allergies No Known Allergiesdocumented as of this [...] BMI 36.0-36.9,adult 06/10/2014 Overview: ICD10 Diagnosis Term Insulator Technician Utility Screen for STD (sexually transmitted disease) 06/10/19 15 Overview: ICD10 Diagnosis Term Insulator Technician Utility GDM (gestational diabetes mellitus) 09/25/2013 Overview: [...] visit. 2nd visit scheduled for tomorrow so evaluation specialist can not accomodates in short time. - Will need medicaid for dating usg ICD10 Diagnosis Term Insulator Technician Utility H/O: 09/18/2013 05/20/2014 Overview: Ms Leon- 27 yo with history of prev CS x2 2006 and 2012- uncomplicated Repeat Lower uterine transverse section with no extension. Prior complicated by PIH, antepartum-1st 09/18/2013 05/20/2014 Overview: 1st only GDM 09/18/2013 09/25/2013 UTI (urinary tract infection) 07/24/2013 09/18/2013 Overview: Pt is breast-feeding Encounter for routine gynecological examination 07/21/2013 09/18/2013 Overview: ICD10 Diagnosis Term Insulator Technician Utility Pain pelvic 07/21/2013 09/18/2013 Febrile 07/21/2013 09/18/2013 Tachycardia 07/21/2013 09/18/2013 Overview: ICD10 Diagnosis Term Insulator Technician Utility Morbid obesity 07/21/2013 09/18/2013 High-risk 07/24/2012 [...] is about the size of your fist. [employer] last reviewed this educational content on 11/18/201919990126-4562 The [employer]. All rights reserved. This information is not [...] breast self-examination (BSE). These experts include the [place] [employer] and the [place] [employer] of Obstetricians and Gynecologists. Some experts [...] benign. This means they are not cancer. [employer] last reviewed this educational content on 09/18/201919992562-9714 The [employer]. All rights reserved. This information is not intended as a substitute for professional medical care. Always follow your healthcare professional's instructions. Patient Education Clinical Breast Exam Many health organizations recommend a yearly clinical breast exam. This exam may be done by a vice president quality improvement, family healthcare provider, nurse practitioner, nurse salad counter attendant, or specially trained nurse. Yearly breast exams [...] Guidelines for having clinical breast exams The [place] [employer] Obst[employer]ians and Gynecologists recommends that [...] provider about what is best for you. [employer] renetta reviewed this educational content on 08/19/201919996624-6891 The [employer]. All rights reserved. This information is not [...] want to have children in the future. [employer] last reviewed this educational content on 11/18/2019 The [employer]. All rights reserved. This information is not [...] allowing it to be passed to others. [employer] last reviewed this educational content on 10/18/2018 The [employer]. [address] [place] [address]. All rights reserved. This information is not [...] once as part of routine health care. [employer] last reviewed this educational content on 02/17/201719991268-8210 The [employer]. All rights reserved. This information is not [...] of these vaccines is right for you. [employer] last reviewed this educational content on 04/19/201819990784-5642 The [employer]. All rights reserved. This information is not [...] of these vaccines is right for you. [employer] last reviewed this educational content on 04/19/201819993397-2781 The [employer]. All rights reserved. This information is not [...] her child during , childbirth, and . [employer] last reviewed this educational content on 10/18/201819990336-2149 The [employer]. [address] [place] [address]. All rights reserved. This information is not [...] Dilip Julio MD; Location: [facility] Social History Socioeconomic History Marital status: [...] file Gets together: Not on file Attends synagogue service: Not on file Active member of [...] or abuse Pt states she has no synagogue preference. Social History Substance and Sexual Activity [...] influenza Comment: patient desires vaccine Plan: FLU VACC([id number]), 6+ MONTHS, IM, QUAD (FLUZONE/FLULAVAL/FLUARIX) Class 2 [...] problems of obesity on future pregnancies and/or manager long term care health. Return to clinic in 1 year [...] 02/03/2020 only for one day 4) Last [place]: 03/06/2020 5) Last Pap: 02/25/2018 Results: Neg [...] [facility] Marco Adams FNP [address] [place], [place] [address] [phone] Name Type Priority Associated Diagnoses Date/Ti me [...] Date/Time Associated Diagnosis Comme nts FLU VACC ([id number]), Routine 03/09/2020 9:40 AM Need for pro [...] Effective Dates Phone Addre ss Type Group 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
[2020-05-17] MEDS ORDERED: NA CHLORIDE 0.9% 1,000 ML ONE (23:19)
[2020-05-17 23:49] LABS: Absolute Lymphocytes (CBC) 2.4 K/uL (0.7-4.9); Basophils % 0.4 % (0-1.3); Hematocrit 38.4 % (36.0-45.0); Lymphocytes % 33.3 % (15.3-44.8); MPV 9.6 fL (7.6-11.3); RBC Red Blood Cell Count 4.32 M/uL (3.86-4.86)
[2020-05-18 00:27] LABS: Urine Blood 2+ (NEG); Urine Glucose 2+ (NEG); Urine Protein NEGATIVE (NEG); Urine pH 5.5 (5.0-7.0)
[2020-05-18 00:39] LABS: Potassium 3.5 mmol/L (3.5-5.1)
--- NOTE | 2020-05-18 00:45 | ER ---
Nurse's Notes [facility] Name: Court Pyle Age: 34 yrs Sex: Female : 1985 Arrival Date: 05/17/2020 Time: 21:56 Bed 25 Private MD: Diagnosis: related conditions, unspecified, first trimester;Threatened Presentation: 05/17 22:06 Chief complaint: Patient states: Lower abd/pelvic pain on the 24th. Vaginal spotting ll1 for 2 weeks, test at home is positive. G4, P3. Coronavirus screen: Client denies travel out of the [place] in the last 14 days. At this time, the client does not indicate any symptoms associated with coronavirus-19. Ebola Screen: Patient denies travel to an Ebola-affected area in the 21 days before illness onset. Initial Sepsis Screen: Does the patient meet any 2 criteria? No. Patient's initial sepsis screen is negative. Does the patient have a suspected source of infection? Yes: Acute abdominal pain. Risk Assessment: Do you want to hurt yourself or someone else? Patient reports no desire to harm self or others. Onset of symptoms was May 03, 2020. 22:06 Method Of Arrival: Ambulatory ll1 22:06 Acuity: AMRIT 3 ll1 PRINCIPLE SOFTWARE ENGINEER: 22:34 4, Full Term 3, Premature 0, 0, Living 3 althea Historical: - Allergies: 22:08 No Known Allergies; ll1 - PMHx: 22:08 Pre-Diabetes; ll1 - PSHx: 22:08 ; ll1 - Immunization history:: Flu vaccine is up to date. - Social history:: Smoking status: Patient denies any tobacco usage or history of. - Family history:: not pertinent. Screenin:25 Abuse screen: Denies threats or abuse. Nutritional screening: No deficits noted. vg1 Tuberculosis screening: No symptoms or risk factors identified. Fall Risk None identified. Assessment: 22:25 General: Appears in no apparent distress. comfortable, Behavior is calm, cooperative. vg1 22:25 Pain: Complains of pain in left upper quadrant and left lower quadrant Pain currently vg1 is 7 out of 10 on a pain scale. Quality of pain is described as crampy, Pain began night. Neuro: Level of Consciousness is awake, alert, obeys commands, Oriented to person, place, time, situation. Cardiovascular: Patient's skin is warm and dry. Respiratory: Airway is patent Respiratory effort is even, unlabored, Respiratory pattern is regular, symmetrical. GI: Bowel sounds present X 4 quads. Abd is soft and non tender Reports bloating, normal bowel habits, Patient currently denies diarrhea, nausea, vomiting. : No signs and/or symptoms were reported regarding the genitourinary system. EENT: No signs and/or symptoms were reported regarding the EENT system. Derm: Skin is intact, is healthy with good turgor. Musculoskeletal: Range of motion: intact in all extremities. 22:44 Reassessment: US at bedside. vg1 23:25 Reassessment: Patient appears in no apparent distress at this time. No changes from vg1 previously documented assessment. Patient is alert, oriented x 3, equal unlabored respirations, skin warm/dry/pink. Vital Signs: 22:06 BP 143 / 85; Pulse 87; Resp 17; Temp 98.4; Pulse Ox 96% ; Weight 99.34 kg; Height 5 ft. ll1 5 in. (165.10 cm); Pain 7/10; 22:30 BP 153 / 80; Pulse 79; Resp 16; Pulse Ox 100% on R/A; vg1 23:00 BP 150 / 81; Pulse 81; Resp 16; Pulse Ox 100% on R/A; vg1 22:06 Body Mass Index 36.44 (99.34 kg, 165.10 cm) ll1 ED Course: 21:56 Patient arrived in ED. cl3 22:07 Triage completed. ll1 22:07 Arm band placed on. ll1 22:22 Tatyana Pyle, RN is Primary Nurse. vg1 22:25 Patient has correct armband on for positive identification. Bed in low position. Call [facility] [place] light in reach. Side rails up X 1. 22:25 Pulse ox on. NIBP on. vg1 22:30 Amado Sood MD is Attending Physician. [facility] 23:06 US Transvaginal Ob In Process Unspecified. EDMS 23:20 Inserted saline lock: 20 gauge in right antecubital area, using aseptic technique. vg1 Blood collected. 23:25 Initial lab(s) drawn, by ct, sent to lab. ABO/Rh band on patient. vg1 23:49 Primary Nurse role handed off by Tatyana Pyle RN 23:49 José Antonio Krishnamurthy, RN is Primary Nurse. 05/18 00:45 Sanjay Chance MD is Referral Physician. [facility] 01:00 No provider procedures requiring assistance completed. IV discontinued, intact, sg bleeding controlled, No redness/swelling at site. Pressure dressing applied. Administered Medications: 05/17 23:35 Drug: NS 0.9% 1000 ml Route: IV; Rate: 1 bolus; Site: right antecubital; vg1 05/18 00:02 Follow up: Response: No adverse reaction; IV Status: Completed infusion; IV Intake: sg 1000ml Intake: 00:02 IV: 1000ml; Total: 1000ml. sg Outcome: 00:45 Discharge ordered by . [facility] 01:10 Discharged to home ambulatory, with family. 01:10 Condition: good 01:10 Discharge instructions given to patient, Instructed on discharge instructions, follow up and referral plans. safety practices, Demonstrated understanding of instructions, follow-up care. 01:21 Patient left the ED. sg Signatures: Dispatcher [employer] EDMS José Antonio Krishnamurthy, RN RN Amado Kilgore MD MD cha Lewis, Charde cl3 Tatyana Pyle RN RN vg1 Rahul Phipps RN RN ll1
--- NOTE | 2020-05-18 00:45 | EDPHYS ---
Physician Documentation [facility] Name: Court Pyle Age: 34 yrs Sex: Female : 1985 Arrival Date: 05/17/2020 Time: 21:56 Bed 25 Private MD: ED Physician Amado Sood HPI: 05/17 22:34 This 34 yrs old Female presents to ER via Ambulatory with complaints of althea Abdominal Pain, Vaginal Spotting. 22:34 The patient presents with pelvic pain, vaginal bleeding that is light. Onset: The althea symptoms/episode began/occurred today. Modifying factors: The symptoms are alleviated by nothing, the symptoms are aggravated by nothing. Associated signs and symptoms: The patient has no apparent associated signs or symptoms. Severity of symptoms: At their worst the symptoms were mild, in the emergency department the symptoms are unchanged. The patient is sexually active, reportedly has a single partner. 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 - Social history:: Smoking status: Patient denies any tobacco usage or history of. - Family history:: not pertinent. ROS: 22:34 Constitutional: Negative for fever, chills, and weight loss, Eyes: Negative for injury, althea pain, redness, and discharge, ENT: Negative for injury, pain, and discharge, Neck: Negative for injury, pain, and swelling, Cardiovascular: Negative for chest pain, palpitations, and edema, Respiratory: Negative for shortness of breath, cough, wheezing, and pleuritic chest pain, Abdomen/GI: Negative for abdominal pain, nausea, vomiting, diarrhea, and constipation, Back: Negative for injury and pain, MS/Extremity: Negative for injury and deformity, Skin: Negative for injury, rash, and discoloration, Neuro: Negative for headache, weakness, numbness, tingling, and seizure, Psych: Negative for depression, anxiety, suicide ideation, homicidal ideation, and hallucinations, Allergy/Immunology: Negative for hives, rash, and allergies, Endocrine: Negative for neck swelling, polydipsia, polyuria, polyphagia, and marked weight changes, Hematologic/Lymphatic: Negative for swollen nodes, abnormal bleeding, and unusual bruising. 22:34 : Positive for pelvic pain, vaginal bleeding. Exam: 22:34 Constitutional: This is a well developed, well nourished patient who is awake, alert, althea and in no acute distress. Head/Face: Normocephalic, atraumatic. Eyes: Pupils equal round and reactive to light, extra-ocular motions intact. Lids and lashes normal. Conjunctiva and sclera are non-icteric and not injected. Cornea within normal limits. Periorbital areas with no swelling, redness, or edema. ENT: Nares patent. No nasal discharge, no septal abnormalities noted. Tympanic membranes are normal and external auditory canals are clear. Oropharynx with no redness, swelling, or masses, exudates, or evidence of obstruction, uvula midline. Mucous membranes moist. Neck: Trachea midline, no thyromegaly or masses palpated, and no cervical lymphadenopathy. Supple, full range of motion without nuchal rigidity, or vertebral point tenderness. No Meningismus. Chest/axilla: Normal chest wall appearance and motion. Nontender with no deformity. No lesions are appreciated. Cardiovascular: Regular rate and rhythm with a normal S1 and S2. No gallops, murmurs, or rubs. Normal PMI, no JVD. No pulse deficits. Respiratory: Lungs have equal breath sounds bilaterally, clear to auscultation and percussion. No rales, rhonchi or wheezes noted. No increased work of breathing, no retractions or nasal flaring. Back: No spinal tenderness. No costovertebral tenderness. Full range of motion. Female : Normal external genitalia. Skin: Warm, dry with normal turgor. Normal color with no rashes, no lesions, and no evidence of cellulitis. MS/ Extremity: Pulses equal, no cyanosis. Neurovascular intact. Full, normal range of motion. Neuro: Awake and alert, GCS 15, oriented to person, place, time, and situation. Cranial nerves II-XII grossly intact. Motor strength 5/5 in all extremities. Sensory grossly intact. Cerebellar exam normal. Normal gait. Psych: Awake, alert, with orientation to person, place and time. Behavior, mood, and affect are within normal limits. 22:34 Abdomen/GI: Bowel sounds: active, Palpation: mild abdominal tenderness, in the suprapubic area, right lower quadrant and left lower quadrant, Liver: no appreciated palpable abnormalities, Hernia: not appreciated. Vital Signs: 22:06 BP 143 / 85; Pulse 87; Resp 17; Temp 98.4; Pulse Ox 96% ; Weight 99.34 kg; Height 5 ft. ll1 5 in. (165.10 cm); Pain 7/10; 22:30 BP 153 / 80; Pulse 79; Resp 16; Pulse Ox 100% on R/A; vg1 23:00 BP 150 / 81; Pulse 81; Resp 16; Pulse Ox 100% on R/A; vg1 22:06 Body Mass Index 36.44 (99.34 kg, 165.10 cm) ll1 MDM: 22:38 Differential diagnosis: ectopic , ovarian cyst, urinary tract infection. Data althea reviewed: vital signs, nurses notes, lab test result(s), radiologic studies, ultrasound. Data interpreted: hospital monitor: rate is 87 beats/min, rhythm is regular, Pulse oximetry: on room air is 96 %. Counseling: I had a detailed discussion with the patient and/or guardian regarding: the historical points, exam findings, and any diagnostic results supporting the discharge/admit diagnosis, radiology results, the need for outpatient follow up, for definitive care, an OB/Gyne specialist. 22:42 Patient medically screened. [facility] 05/17 22:34 Order name: Quantitative Hcg; Complete Time: 00:44 [facility] 05/17 22:34 Order name: Abo/rh Typing; Complete Time: 00:44 [facility] 05/17 22:34 Order name: Basic Metabolic Panel; Complete Time: 00:44 [facility] 05/17 22:34 Order name: CBC with Diff; Complete Time: 00:00 [facility] 05/17 23:13 Order name: Urine Dipstick--Ancillary (enter results); Complete Time: 00:44 05/17 23:13 Order name: Urine --Ancillary (enter results); Complete Time: 00:44 05/17 22:10 Order name: Urine Dipstick-Ancillary (obtain specimen); Complete Time: 23:11 05/17 22:10 Order name: Urine Test (obtain specimen); Complete Time: 23:11 05/17 22:34 Order name: IV Saline Lock; Complete Time: 23:35 [facility] 05/17 22:34 Order name: Labs collected and sent; Complete Time: 23:35 [facility] 05/17 22:34 Order name: NPO; Complete Time: 23:27 [facility] 05/17 22:34 Order name: US Transvaginal Ob althea Administered Medications: 23:35 Drug: NS 0.9% 1000 ml Route: IV; Rate: 1 bolus; Site: right antecubital; vg1 05/18 00:02 Follow up: Response: No adverse reaction; IV Status: Completed infusion; IV Intake: sg 1000ml Disposition: 05/18/20 00:45 Discharged to Home. Impression: related conditions, unspecified, first trimester, Threatened . - Condition is Stable. - Discharge Instructions: Threatened Miscarriage, Vaginal Bleeding During , First Trimester, First Trimester of , [id number], First Trimester of , Threatened Miscarriage, [id number], Pelvic Rest. - Prescriptions for Vitamin 27- 0.8 mg Oral Tablet - take 1 tablet by ORAL route once daily; 30 tablet. - Medication Reconciliation Form, Thank You Letter, Antibiotic Education, Prescription Opioid Use form. - Follow up: Private Physician; When: 2 - 3 days; Reason: Recheck today's complaints, Continuance of care, Re-evaluation by your physician. Follow up: Sanjay Chance; When: 2 - 3 days; Reason: Recheck today's complaints, Re-evaluation by your physician. - Problem is new. - Symptoms have improved. Signatures: Dispatcher [employer] Aimee Bear, TYPEWRITER RIBBON WINDER-C TYPEWRITER RIBBON WINDER-Ckb José Antonio Krishnamurthy RN RN sg Anderson, Corey, MD MD cha Garcia, Victoria, RN RN vg1 Rahul Phipps RN RN ll1 Corrections: (The following items were deleted from the chart) 01:21 00:45 05/18/2020 00:45 Discharged to Home. Impression: related conditions, sg unspecified, first trimester; Threatened . Condition is Stable. Discharge Instructions: Threatened Miscarriage, Vaginal Bleeding During , First Trimester, First Trimester of , [id number], First Trimester of , Threatened Miscarriage, [id number], Pelvic Rest. Prescriptions for Vitamin 27-0.8 mg Oral Tablet - take 1 tablet by ORAL route once daily; 30 tablet. and Forms are Medication Reconciliation Form, Thank You Letter, Antibiotic Education, Prescription Opioid Use. Follow up: Private Physician; When: 2 - 3 days; Reason: Recheck today's complaints, Continuance of care, Re-evaluation by your physician. Follow up: Sanjay Chance; When: 2 - 3 days; Reason: Recheck today's complaints, Re-evaluation by your physician. Problem is new. Symptoms have improved. althea
[2020-05-18 01:26] VITALS: TEMP 98.4
[2020-05-18 01:27] VITALS: O2SAT 100
[2020-05-18 01:28] VITALS: BP 150/81
--- NOTE | 2020-05-18 08:04 | RAD REPORT ---
EXAM DESCRIPTION: US - Transvaginal OB - 05/17/2020 11:06 pm CLINICAL HISTORY: with pelvic pain COMPARISON: None. FINDINGS: The uterus 9 x 5 x 6 centimeters. The endometrial stripe measures 11 millimeter. A gestat ional sac is not seen. Right and left adnexal unremarkable. 3.5 centimeter right ovarian cyst. 2 centimeter hemorrhagic right ovarian cyst. Left ovary not seen secondary to overlying bowel gas. No significant free fluid IMPRESSION: Nonvisualization of a gestational sac within the endometrium. These findings could represent an early intrauterine in which the gestational sac is not se en. and even an ectopic can also result in this appearance. This all should be cor related clinically and with serial beta HCG levels. Followup endovaginal sonogram in 1 week recommend ed Right ovarian cysts as described above
== END 2020-05-18 01:21 | disposition home or self-care (01) ==
LOC: ER 21:55
DX: O20.0 Threatened abortion (principal); Z3A.00 Weeks of gestation of pregnancy not specified
CPT/HCPCS: 36415; 76817; 80048; 81003; 81025; 84702; 85025; 86900; 86901; 99284; J7030